=== PATIENT | male | born 1945 | race Caucasian/White ===

== ENCOUNTER 2019-05-29 22:39 | Emergency (ER) | payer OTHER, MEDICARE, SELFPAY ==
[2019-05-29 22:40] VITALS: BP 204/90; PULSE 77; RESP 18; TEMP 36.6; O2SAT 90; BMI 21.2
--- NOTE | 2019-05-29 23:02 | CTR_ITS ---
PROCEDURE INFORMATION: Exam: CT Abdomen And Pelvis Without Contrast Exam date and time: 05/29/2019 11:05 PM Age: 74 years old Clinical indication: Abdominal pain; Flank; Right; Prior surgery; Surgery date: 6+ months; Surgery type: Appy; Additional info: Right flank pain TECHNIQUE: Imaging protocol: Computed tomography of the abdomen and pelvis without contrast. Total DLP: 848.32 mGy-cm Radiation optimization: All CT scans at this facility use at least one of these dose optimization techniques: automated exposure control; mA and/or kV adjustment per patient size (includes targeted exams where dose is matched to clinical indication); or iterative reconstruction. COMPARISON: No relevant prior studies available. FINDINGS: Lungs: Calcified granuloma in the right lower lobe. Patchy atelectasis in the lower lobes. Pleural space: No pleural effusion. Heart: Visualized portions of the heart are mildly enlarged. Liver: Multiple calcified granulomas in the liver. Gallbladder and bile ducts: Single gallstone in the gallbladder. No biliary ductal dilatation. Pancreas: The pancreas is unremarkable. No pancreatic ductal dilatation. Spleen: Multiple calcified granulomas in the spleen. Adrenals: The right and left adrenal glands are unremarkable. Kidneys and ureters: Focal cortical scarring in the right and left kidneys. Simple cysts in both right and left kidneys. Largest cyst on the right measures 1.3 cm. Largest cyst on the left measures 1.6 cm. The right and left ureters are unremarkable. Stomach and bowel: Ingested contents in the stomach. Fluid within the small bowel without evidence of mesenteric lymphadenopathy or bowel wall thickening. No acute abnormality in the colon. Appendix: Appendix not definitely visualized. No inflammatory changes in the pericecal region however. Intraperitoneal space: No free intraperitoneal air. No ascites. No loculated fluid collections to suggest an abscess. Vasculature: Mild atherosclerotic changes in the visualized arteries. No evidence for aortic aneurysm. Lymph nodes: No lymphadenopathy. Bladder: Diffuse, moderate wall thickening of the bladder. Mild bladder distention. Large soft tissue focus at the base of the bladder, it is uncertain whether this represents extension of an enlarged prostate versus a bladder mass. This measures 6.0 x 4.8 x 6.0 cm (series 601, image 37 and series 2, image 161). Reproductive: Nonspecific parenchymal calcifications in the prostate gland. Bones/joints: Degenerative changes in the spine, sacroiliac joints, and hips. Hypertrophy with coarsened trabecula in the right hemipelvis, suggesting Paget's disease. Soft tissues: The extra-abdominal soft tissues are unremarkable. CT/CT kidney stone 77115 IMPRESSION: 1. Large soft tissue focus at the base of the bladder, it is uncertain whether this represents extension of an enlarged prostate versus a bladder mass. Recommend clinical correlation. 2. Fluid within the small bowel without evidence of mesenteric lymphadenopathy or bowel wall thickening. This may reflect viral gastroenteritis in the appropriate clinical situation. 3. Cholelithiasis. 4. Diffuse, moderate wall thickening of the bladder. In the correct clinical setting, this may suggest cystitis. Recommend correlation with laboratory findings. Alternatively, this may be secondary to chronic outlet obstruction. 5. Mild bladder distention. 6. Hypertrophy with coarsened trabecula in the right hemipelvis, suggesting Paget's disease. 7. Incidental/nonacute findings are listed in the report. COMMENT: Consistent with the [employer]'s Incidental Findings Committee white paper (J Am Nahid Radiol 2018): Any incidental cystic renal lesion classified in this report as too small to characterize or simple appearing is likely a benign cyst. No follow-up imaging is recommended for these lesions per consensus recommendations based on imaging criteria. Radiation Dose CTDIVOL = (mGy): DLP = 848.32 (mGy-cm)
--- NOTE | 2019-05-29 23:03 | ED_ITS ---
HPI - Abdominal Pain General: Chief Complaint: Abdominal Pain Stated Complaint: RT FLANK PAIN Time Seen by Provider: 05/29/19 22:44 History of Present Illness: HPI narrative: Patient comes in today with complaints of right flank pain. Patient reports he was sitting watching TV and had sudden onset of right flank pain. Patient has a history of BPH, but he takes routine medications for. Patient denies any other chronic medical problems. Review of patient's medications he does take statin for probable hyperlipidemia. Patient appears in moderate pain. Patient appears well. Review of Systems General: Reports: 10 or more systems reviewed and unremarkable except in HPI and below : Reports: flank pain PFSH ED PFSH: Statuses (acute, chronic, etc) shown below reflect problem list status as previously entered and may not be historically accurate Social History Smoking and tobacco status: current every day smoker Physical Exam Const: COMMON NORMALS: no apparent distress and oriented x3 GENERAL APPEARANCE: cooperative HENMT: COMMON NORMALS: normocephalic, external ears normal, EAC's normal, TM's normal bilaterally and external nose normal HEAD & SCALP: normal to inspection and normocephalic FACE & SINUS: normal facial exam NOSE: external nose normal GENERAL EAR: hearing not grossly impaired EXTERNAL EAR: Yes external ears normal EXTERNAL AUDITORY CANAL: EAC's normal TYMPANIC MEMBRANE: TM's normal bilaterally MOUTH: oral and palatal mucosa normal THROAT: posterior oropharynx normal Eye: COMMON NORMALS: PERRL and EOMs intact bilaterally PUPIL: Yes PERRL Neck/C-Spine: COMMON NORMALS: full ROM and no lymphadenopathy Lymph: LYMPHATIC: no lymphedema noted Chest: COMMONS NORMALS: inspection of chest normal and palpation of chest normal Resp: COMMON NORMALS: normal respiratory effort and clear to auscultation bilaterally AUSCULTATION: clear to auscultation bilaterally Cardio: COMMON NORMALS: regular rate and regular rhythm RATE: regular rate RHYTHM: regular rhythm GI: COMMON NORMALS: normal to inspection, nondistended, normoactive bowel sounds and non-tender : BLADDER/KIDNEY EXAM: Yes CVA tenderness on the right Back/Pelvis: COMMON NORMALS: thoracic and lumbar spine normal to inspection GENERAL BACK: Yes CVA tenderness Extremity: COMMON NORMALS: normal to inspection GENERAL: No edema Neuro: COMMON NORMALS: oriented x3, moves all extremities and no focal motor deficits Psych: COMMON NORMALS: mental status grossly normal and cooperative Skin: COMMON NORMALS: no rashes or lesions noted (senile purpura noted) GENERAL SKIN EXAM: no rashes or lesions noted (senile purpura noted) Course Vital Signs: Vital signs: Vital Signs Temperature 97.9 F 05/29/19 22:40 Pulse Rate 78 05/29/19 23:17 Respiratory Rate 18 05/29/19 23:17 Blood Pressure 171/100 05/29/19 23:17 Pulse Oximetry 94 05/29/19 23:17 MDM - Abdominal Pain MDM Narrative: Medical decision making narrative: Patient comes in today with complaints of right flank pain. Patient has a history of urinary retention. Patient reports he was just sitting watching TV and suddenly got sharp sudden pain to the right flank. Patient has pain on palpation of the right upper quadrant and positive CVA tenderness in the right flank. Vital signs are stable. Patient appears well. Differential diagnosis includes renal colic, gallbladder colic, cholecystitis, pyelonephritis, gastroenteritis. Patient was treated for pain with good results. Patient full resolution of symptoms. CT scan noted some gallbladder stones without signs of cholecystitis. Also note no hydronephrosis. There was noted some bladder retention and a bladder or prostate mass. Also some mild enteritis was noted on the CT scan. Remainder of the labs noted some creatinine clearance of about 1.7. Alkaline phosphatase was slightly high at 140s but the AST is ALTs were normal. And no significant white blood cell count was noted. Reviewed exam with patient recommended treatment with medication for pain follow-up with urology Dr. Dumas which patient is already established and follow-up with primary care or surgeon for further evaluation of gallstones. Patient reports understanding and agreed to plan. Addendum to the note, urinalysis showed large amount of white blood cells we will go ahead and treat with 1 g Rocephin and add cephalexin 500 twice daily for 7 days to patient's regimen. Reviewed with patient reported understanding he will follow-up Dr. Dumas otherwise. Lab Data: Labs: Lab Results 05/29/19 05/29/19 05/30/19 Range/Units 22:52 22:52 00:01 WBC 11.0 H (4.0-10.0) 10^3/ uL RBC 5.49 H (4.1-5.3) 10^6/u L Hgb 15.1 (11.7-16.6) g/dL Hct 44.1 (42.0-52.0) % MCV 80.3 (80-94) fL MCH 27.5 L (28.0-34.0) pg MCHC 34.2 (30.0-36.0) g/dL RDW 14.5 (12.1-15.1) % Plt Count 210 (130-400) 10^3/c mm MPV 11.2 H (7.4-10.4) fL Neut % (Auto) 79.9 % Lymph % (Auto) 13.2 % Burt % (Auto) 5.5 % Eos % (Auto) 0.8 % Baso % (Auto) 0.3 % Neut # (Auto) 8.8 H (1.8-7.7) 10^3/u L Lymph # (Auto) 1.5 (0.8-4.8) 10^3/u L Burt # (Auto) 0.6 (0.2-0.9) 10^3/u L Eos # (Auto) 0.1 (0.0-0.8) 10^3/u L Baso # (Auto) 0.0 (0.0-0.1) 10^3/u L Nucleated RBC % (a uto) 0 % Nucleated RBCs # 0.0 /100WBC Sodium 138 (136-145) mmol/L Potassium 3.9 (3.5-5.1) mmol/L Chloride 101 (98-107) mmol/L Carbon Dioxide 23 (22-29) mmol/L Anion Gap 17.9 (5-19) BUN 27 H (8-23) mg/dL Creatinine 1.7 H (0.7-1.2) mg/dL Glucose 158 H (74-106) mg/dL Calcium 9.9 (8.5-10.5) mg/dL Total Bilirubin 0.5 (0.15-1.2) mg/dL AST 24 (0-40) U/L ALT 26 (0-41) U/L Alkaline Phosphata se 135 H (40-130) IU/L Total Protein 7.6 (6.6-8.7) g/dL Albumin 4.4 (3.5-5.2) g/dL Globulin 3.2 (1.3-4.6) g/dL Lipase 46 (13-60) U/L Urine Color Yellow (Yellow) Urine Appearance Cloudy (CLEAR) Urine pH 7 (5-7) Ur Specific Gravit y 1.015 (1.005-1.030) Urine Protein Neg (Negative) Urine Glucose (UA) Norm (Normal) Urine Ketones Negative (Negative) Urine Occult Blood 2+ H (Negative) Urine Nitrate Positive H (Negative) Urine Bilirubin Neg (NEGATIVE) Urine Urobilinogen Norm (Negative) mg/dL Ur Leukocyte Cassi ase 1+ H (Negative) Urine RBC 5-10 H (0-2) /hpf Urine WBC >100 H (0-5) /hpf Ur Squamous Epith Cells 0-4 H (0-5) Urine Bacteria 4+ H (NONE) Discharge Plan Discharge Patient Disposition: Home, Self-Care Clinical Impression: Acute right flank pain, Mass of urinary bladder, Cystitis Cholelithiases Qualifiers: Cholelithiasis location: gallbladder Cholecystitis presence: without cholecystitis Biliary obstruction: without biliary obstruction Qualified Code(s): K80.20 - Calculus of gallbladder without cholecystitis without obstruction Condition: Stable Prescriptions: New dicyclomine 20 mg tablet 20 mg PO TID PRN (Reason: flank pain) Qty: 14 RF: 0 cephalexin 500 mg capsule 500 mg PO BID 7 Days Qty: 14 RF: 0 No Action atorvastatin 80 mg Tablet 80 mg PO QPM RF: 0 Flomax 0.4 mg Capsule 0.4 mg PO DAILY RF: 0 finasteride 5 mg Tablet 5 mg PO DAILY RF: 0 Vitamin D3 25 mcg (1,000 unit) Tablet,Chewable 25 mcg PO DAILY RF: 0 [place]-3 350 mg-235 mg- 90 mg-597 mg Capsule,Delayed Release(Dr/Ec) 1 cap PO DAILY RF: 0 Discharge Orders: Discharge Order (Routine); Ordered 05/30/19 Ordered By: Akira Portillo Referrals: Melvin Villarreal MD [Family Provider] - Discharge Diet: Usual diet Discharge Activity: Increase activity as tolerated Patient Instructions: Cholelithiasis, Abdominal Pain (ED) Activity Restrictions/Additional Instructions: Drink plenty of water Medication as needed Follow-up with Dr. Dumas regarding abnormal CT result of bladder versus prostate mass Follow-up with surgeon regarding gallbladder stone Return to ER for uncontrolled pain or high fever Coding Level of Care Code ED Territory Sales Manager Medical for Chg Fwd Exam Problem Focused
[2019-05-29 23:10] LABS: Basophils % 0.3 %; Eosinophils # 0.1 10^3/uL (0.0-0.8); Eosinophils % 0.8 %; Hematocrit 44.1 % (42.0-52.0); Hemoglobin 15.1 g/dL (11.7-16.6); Lymphocytes # 1.5 10^3/uL (0.8-4.8); Lymphocytes % 13.2 %; Mean Corpuscular HGB Conc 34.2 g/dL (30.0-36.0); Mean Corpuscular Hemoglobin 27.5 pg (28.0-34.0); Mean Corpuscular Volume 80.3 fL (80-94); Mean Platelet Volume 11.2 fL (7.4-10.4); Monocytes # 0.6 10^3/uL (0.2-0.9); Monocytes % 5.5 %; Neutrophils # 8.8 10^3/uL (1.8-7.7); Neutrophils % 79.9 %; Nucleated Red Blood Cells % 0 %; Platelet Count 210 10^3/cmm (130-400); Red Blood Count 5.49 10^6/uL (4.1-5.3); Red Cell Distribution Width 14.5 % (12.1-15.1)
[2019-05-29] MEDS: ketorolac 30 mg/mL INJ 15 MG IVP (23:15)
[2019-05-29 23:16] VITALS: RESP 18
[2019-05-29] MEDS: morphine 4 mg/mL SDV 1 mL IVP (23:16)
[2019-05-29] MEDS: ondansetron 2 mg/ML SDV 2 mL 4 MG IVP (23:16)
[2019-05-29 23:17] VITALS: BP 171/100; PULSE 78; RESP 18; O2SAT 94
[2019-05-29 23:19] LABS: Alanine Aminotransferase 26 U/L (0-41); Albumin Level 4.4 g/dL (3.5-5.2); Alkaline Phosphatase 135 IU/L (40-130); Anion Gap 17.9 (5-19); Aspartate Amino Transferase 24 U/L (0-40); Blood Urea Nitrogen 27 mg/dL (8-23); Calcium 9.9 mg/dL (8.5-10.5); Carbon Dioxide 23 mmol/L (22-29); Chloride 101 mmol/L (98-107); Globulin 3.2 g/dL (1.3-4.6); Glucose 158 mg/dL (74-106); Lipase 46 U/L (13-60); Potassium 3.9 mmol/L (3.5-5.1); Sodium 138 mmol/L (136-145); Total Bilirubin 0.5 mg/dL (0.15-1.2); Total Protein 7.6 g/dL (6.6-8.7)
[2019-05-30 00:52] LABS: Urine Appearance Cloudy (CLEAR); Urine Color Yellow (Yellow)
[2019-05-30 00:55] LABS: Add Urine Culture? Yes; Bacteria Urine 4+; Bilirubin Urine Neg (NEGATIVE); Blood Urine 2+ (Negative); Glucose Urine UA Norm (Normal); Ketones Urine Negative (Negative); Leukocyte Esterase Urine 1+ (Negative); Nitrate Urine Positive (Negative); Protein Urine Neg (Negative); Specific Gravity, Urine 1.015 (1.005-1.030); Squamous Epithelial Cell Urine 0-4 (0-5); Urobilinogen Urine Norm (Negative); WBC Urine >100 /hpf (0-5); pH Urine 7 (5-7)
[2019-05-30] MEDS: cefTRIAXone 1,000 MG in sodium chloride 0.9% (plus) 50 ML 100 MG IV (01:13)
[2019-05-30 01:35] VITALS: BP 142/71; PULSE 83; RESP 18; O2SAT 93
--- NOTE | 2019-05-31 14:02 | DCPLANNER ---
regional construction manager had message to schedule a follow up appointment for patient with Dr. Dumas. regional construction manager called the office of Dr. Dumas, gave patients name to the clinic. [facility], the clinic stated that they would have to wait for a authorization from the [facility] before seeing patient. regional construction manager called [facility] with [facility] and informed her of the patients need for a referral to Dr. Dumas.
== END 2019-05-30 01:37 | disposition home or self-care (01) ==
PROVIDERS: Emergency Provider Nurse Practitioner Family; Family Provider Family Medicine Adult Medicine
DX: N30.90 Cystitis, unspecified without hematuria (principal); N32.9 Bladder disorder, unspecified; K80.20 Calculus of gallbladder without cholecystitis without obstruction; F17.210 Nicotine dependence, cigarettes, uncomplicated
CPT/HCPCS: 74176; 80053; 81001; 83690; 85025; 87077; 87086; 87186; 96365; 96374; 96375; 99282; 99283; J0696; J1885; J2270; J2405

== ENCOUNTER → 2024-10-19 08:37 | Outpatient (BNVA) | payer OTHER, SELFPAY | PROVIDERS: Visit Provider Podiatrist Foot & Ankle Surgery | DX: I73.9 Peripheral vascular disease, unspecified (principal); L60.3 Nail dystrophy | CPT/HCPCS: 11721; 99204 ==

== ENCOUNTER → 2025-01-30 14:06 | Outpatient (BNVA) | payer OTHER, SELFPAY | PROVIDERS: Visit Provider Podiatrist Foot & Ankle Surgery | DX: I73.9 Peripheral vascular disease, unspecified (principal); L60.8 Other nail disorders; L60.3 Nail dystrophy | CPT/HCPCS: 11721 ==